=== PATIENT | female | born 1990 | race Two or more races ===

== ENCOUNTER 2018-12-15 04:37 | Inpatient (IN) | payer OTHER ==
[2018-12-15] MEDS ORDERED: Methylergonovine 0.2 MG/1 ML Amp IM PRN (10:53)
[2018-12-15] MEDS ORDERED: Carboprost Tromethamine 250 MCG/1 ML Amp IM PRN (10:53)
[2018-12-15] MEDS ORDERED: Sodium Chloride 0.9% 10 ML SDV IV PRN (10:53)
[2018-12-15] MEDS ORDERED: Lidocaine 1% 50 ML MDV INJECT PRN (10:53)
[2018-12-15] MEDS ORDERED: Sodium Chloride 0.9% 2.5 ML Syringe FLUSH PRN (10:53)
[2018-12-15] MEDS ORDERED: Nalbuphine 10 MG/1 ML Vial IVPUSH PRN (10:53)
[2018-12-15] MEDS ORDERED: Water For Irrigation,Sterile 1,000 ML Container IRR PRN (10:53)
[2018-12-15] MEDS ORDERED: Tranexamic Acid 1,000 MG in Sodium Chloride 0.9% 100 ML IV PRN (10:53)
[2018-12-15] MEDS ORDERED: Butorphanol 1 MG/ML SDV IVPUSH PRN (10:53)
[2018-12-15] MEDS ORDERED: Sodium Chloride 0.9% 10 ML Syringe FLUSH PRN (10:53)
[2018-12-15] MEDS ORDERED: Misoprostol 200 MCG Tab PO PRN (10:53)
[2018-12-15] MEDS ORDERED: Lactated Ringers 1,000 ML IV SCH (11:00)
[2018-12-15] MEDS ORDERED: Oxytocin/0.9 % Sodium Chloride 30 UNIT/500 ML BAG IV SCH (11:00)
--- NOTE | 2018-12-15 11:39 | PCM.PREANE ---
Preanesthetic Assessment - Anesthesia/Transfusion/Family Hx Anesthesia History: Prior Anesthesia Without Reaction Family History of Anesthesia Reaction: No - Review of Systems General: No Symptoms Pulmonary: No Symptoms Cardiovascular: No Symptoms Gastrointestinal: No Symptoms Neurological: No Symptoms Other: Reports: None - Physical Assessment Height: 1.7 m Weight: 73.028 kg ASA Class: 2E Mental Status: Alert & Oriented x3 Dentition: Reports: Normal Dentition ROM/Head Extension: Full Lungs: Clear to Auscultation, Normal Respiratory Effort Cardiovascular: Regular Rate, Regular Rhythm - Lab Values: Laboratory Last Values WBC 10.50 K/uL (4.0-11.0) 12/15/18 11:17 RBC 4.03 M/uL (4.30-5.90) L 12/15/18 11:17 Hgb 12.2 g/dL (12.0-16.0) 12/15/18 11:17 Hct 35.6 % (36.0-46.0) L 12/15/18 11:17 MCV 88.3 fL (80.0-98.0) 12/15/18 11:17 MCH 30.3 pg (27.0-32.0) 12/15/18 11:17 MCHC 34.3 g/dL (31.0-37.0) 12/15/18 11:17 RDW Std Deviation 43.8 fl (28.0-62.0) 12/15/18 11:17 RDW Coeff of Lanny 14 % (11.0-15.0) 12/15/18 11:17 Plt Count 175 K/uL (150-400) 12/15/18 11:17 MPV 10.00 fL (7.40-12.00) 12/15/18 11:17 Nucleated RBC % 0.0 /100WBC 12/15/18 11:17 Nucleated RBCs # 0 K/uL 12/15/18 11:17 - Allergies Allergies/Adverse Reactions: Allergies Allergy/AdvReac Type Severity Reaction Status Date / Time No Known Allergies Allergy Verified 12/15/18 05:22 - Acknowledgements Anesthesia Type Planned: Epidural Pt an Appropriate Candidate for the Planned Anesthesia: Yes Alternatives and Risks of Anesthesia Discussed w Pt/Guardian: Yes Pt/Guardian Understands and Agrees with Anesthesia Plan: Yes PreAnesthesia Questionnaire HEENT History: Reports: None Cardiovascular History: Reports: None Respiratory History: Reports: None Gastrointestinal History: Reports: None Genitourinary History: Reports: None 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 History: Reports: Fracture Neurological History: Reports: None Psychiatric History: Reports: None Endocrine/Metabolic History: Reports: None Hematologic History: Reports: None Immunologic History: Reports: None Oncologic (Cancer) History: Reports: None Dermatologic History: Reports: None - Infectious Disease History Infectious Disease History: Reports: None - Past Surgical History HEENT Surgical History: Reports: None Female Surgical History: Reports: Section Musculoskeletal Surgical History: Reports: None - CURRENT (IN HOUSE) MEDS Current Meds: Current Medications Butorphanol Tartrate (Stadol) 1 mg IVPUSH Q1H PRN PRN Reason: Pain Carboprost Tromethamine (Hemabate Ds) 250 mcg IM ASDIRECTED PRN PRN Reason: Post Hemorrhage Tranexamic Acid 1,000 mg/ (Sodium Chloride) 110 mls @ 660 mls/hr IV ONETIME PRN PRN Reason: Bleeding Lactated Ringer's (Ringers, Lactated) 1,000 mls @ 150 mls/hr IV ASDIRECTED DARIO Oxytocin/Sodium Chloride (Oxytocin 30 Unit/500 Ml-Ns) 30 unit in 500 mls @ 500 mls/hr IV TITRATE DARIO Lidocaine HCl (Xylocaine 1%) 50 ml INJECT ONETIME PRN PRN Reason: Laceration repair Methylergonovine Maleate (Methergine) 0.2 mg IM ASDIRECTED PRN PRN Reason: Post Hemorrhage Misoprostol (Cytotec) 200 mcg PO ONETIME PRN PRN Reason: Post Hemorrhage Nalbuphine HCl (Nubain) 10 mg IVPUSH Q1H PRN PRN Reason: Pain (severe 7-10) Sodium Chloride (Saline Flush) 10 ml FLUSH ASDIRECTED PRN PRN Reason: Keep Vein Open Sodium Chloride (Saline Flush) 2.5 ml FLUSH ASDIRECTED PRN PRN Reason: Keep Vein Open Sodium Chloride (Normal Saline) 10 ml IV ASDIRECTED PRN PRN Reason: IV Use Sterile Water (Sterile Water For Irrigation) 1,000 ml IRR ASDIRECTED PRN PRN Reason: delivery
[2018-12-15] MEDS ORDERED: Docusate Sodium 100 MG Cap PO PRN (23:06)
[2018-12-15] MEDS ORDERED: Witch Hazel Medicated Pads 40/Jar TOP PRN (23:06)
[2018-12-15] MEDS ORDERED: Ibuprofen 400 MG Tab PO PRN (23:06)
[2018-12-15] MEDS ORDERED: Bisacodyl 10 MG Supp RECTAL PRN (23:06)
[2018-12-15] MEDS ORDERED: Acetaminophen 500 MG Tab PO PRN ×2 (23:06)
[2018-12-15] MEDS ORDERED: Lanolin 100% Cream 7 GM Tube TOP PRN (23:06)
--- NOTE | 2018-12-16 03:17 | OR ---
SURGEON: Daniel Newton MD DATE OF PROCEDURE: 12/15/2018 INDICATION: A 27-year-old, -0-1-1, at 41 weeks 1 day, presenting in early labor was dilated 3cm. She had 1 prior low-transverse section for breech presentation. She had care in [place] this . However, she desired trial of labor after C- section, so she presented to [facility]. Discussed risks and benefits of repeat C- section versus trial of labor after section, she desired trial of labor. She continued to progress, and membrane was ruptured with clear fluid. She progressed to 10, 100, +2 station, had consistently category 1 tracing. PREOPERATIVE DIAGNOSES: 1. Menendez intrauterine at 41 weeks and 1 day. 2. Prior section x1. 3. Active second stage of labor. POSTOPERATIVE DIAGNOSES: 1. Menendez intrauterine at 41 weeks and 1 day. 2. Prior section x1. 3. Active second stage of labor. PROCEDURE: Normal spontaneous vaginal delivery. ANESTHESIA: Epidural anesthesia. ANESTHESIOLOGIST: Dr. Yaquelin Cox. Alex Guerrero CRNA ESTIMATED BLOOD LOSS: 300 mL. FINDINGS: Menendez intrauterine at 41 weeks and 1 day in cephalic presentation. Female fetus, score of 8 and 9. Weight of 8 pounds 10 ounces. DESCRIPTION OF PROCEDURE: The patient pushed with contractions for about 2 hours, had a consistently category 1 tracing with some early decelerations. head delivered over intact perineum in occiput anterior position, restituted ROT. No nuchal cord was noted. Anterior shoulder was delivered easily, followed by posterior shoulder and remaining body. was placed on maternal chest and assessed by awaiting nursery staff. Baby was pink and crying vigorously after delivery and moving all extremities. Umbilical cord was clamped and cut after 60 seconds and no longer pulsating. Cord gases were obtained. Placenta was delivered with gentle traction on the umbilical cord. It was examined to be intact with 3-vessel cord. The vagina and perineum was examined and noted a small right vaginal laceration that was bleeding. A [id number] was placed over the bleeding area with 3-0 Vicryl. Hemostasis was confirmed. Moderate bleeding was noted. Bimanual massage was performed with improvement in tone and decrease in bleeding. The patient tolerated the procedure well and was given care instructions. FAITH / ALEX /[id number] MTDD
[2018-12-16] MEDS: Benzocaine/Menthol 20%-0.5% Spray 78 GM Cannister TOP PRN ×2 (04:04→20:48)
[2018-12-16] MEDS: Ibuprofen 800 MG Tab PO PRN ×2 (04:05→20:45)
--- NOTE | 2018-12-16 08:04 | PCM48HPAN ---
Post Anesthesia Note - EVALUATION WITHIN 48HRS OF ANESTHETIC Vital Signs in Normal Range: Yes Patient Participated in Evaluation: Yes Respiratory Function Stable: Yes Airway Patent: Yes Cardiovascular Function Stable: Yes Hydration Status Stable: Yes Pain Control Satisfactory: Yes Nausea and Vomiting Control Satisfactory: Yes Mental Status Recovered: Yes Vital Signs: Last Vital Signs Temp 36.3 C 12/16/18 04:05 Pulse 89 12/16/18 04:05 Resp 17 12/16/18 04:05 BP 113/57 L 12/16/18 04:05 Pulse Ox 95 12/16/18 04:05
--- NOTE | 2018-12-16 09:49 | PCM.PNPP ---
- General Info Date of Service: 12/16/18 Functional Status: Reports: Pain Controlled, Tolerating Diet, Ambulating, Urinating, Other - Review of Systems General: Reports: No Symptoms HEENT: Reports: No Symptoms Pulmonary: Reports: No Symptoms Cardiovascular: Reports: No Symptoms Gastrointestinal: Reports: No Symptoms Genitourinary: Reports: No Symptoms Musculoskeletal: Reports: Other (Numbness right thigh) Skin: Reports: No Symptoms Neurological: Reports: No Symptoms Psychiatric: Reports: No Symptoms - Patient Data Vital Signs - Most Recent: Last Vital Signs Temp 36.3 C 12/16/18 07:53 Pulse 88 12/16/18 07:53 Resp 16 12/16/18 07:53 BP 104/65 12/16/18 07:53 Pulse Ox 96 12/16/18 07:53 Weight - Most Recent: 161 lb Lab Results - Last 24 Hours: Laboratory Results - last 24 hr 12/15/18 12/15/18 12/16/18 Range/Units 11:17 11:17 06:20 WBC 10.50 (4.0-11.0) K/uL RBC 4.03 L (4.30-5.90) M/uL Hgb 12.2 11.2 L (12.0-16.0) g/dL Hct 35.6 L 33.4 L (36.0-46.0) % MCV 88.3 (80.0-98.0) fL MCH 30.3 (27.0-32.0) pg MCHC 34.3 (31.0-37.0) g/dL RDW Std Deviation 43.8 (28.0-62.0) fl RDW Coeff of Lanny 14 (11.0-15.0) % Plt Count 175 (150-400) K/uL MPV 10.00 (7.40-12.00) fL Nucleated RBC % 0.0 /100WBC Nucleated RBCs # 0 K/uL Blood Type A POSITIVE Antibody Screen NEGATIVE Med Orders - Current: Current Medications Acetaminophen (Tylenol Extra Strength) 500 mg PO Q4H PRN PRN Reason: Pain Acetaminophen (Tylenol Extra Strength) 1,000 mg PO Q4H PRN PRN Reason: Pain Last Admin: 12/16/18 04:04 Dose: 1,000 mg Benzocaine/Menthol (Dermoplast Pain Relief 20%-0.5% [place]) 78 gm TOP ASDIRECTED PRN PRN Reason: Perineal Comfort Measure Last Admin: 12/16/18 04:04 Dose: 1 applic Bisacodyl (Dulcolax) 10 mg RECTAL ONETIME PRN PRN Reason: Constipation Butorphanol Tartrate (Stadol) 1 mg IVPUSH Q1H PRN PRN Reason: Pain Carboprost Tromethamine (Hemabate Ds) 250 mcg IM ASDIRECTED PRN PRN Reason: Post Hemorrhage Docusate Sodium (Colace) 100 mg PO BID PRN PRN Reason: Constipation Emollient Ointment (Lansinoh Hpa) 0 gm TOP ASDIRECTED PRN PRN Reason: Sore Nipples Tranexamic Acid 1,000 mg/ (Sodium Chloride) 110 mls @ 660 mls/hr IV ONETIME PRN PRN Reason: Bleeding Lactated Ringer's (Ringers, Lactated) 1,000 mls @ 150 mls/hr IV ASDIRECTED [facility] Last Admin: 12/15/18 13:55 Dose: 999 mls/hr Oxytocin/Sodium Chloride (Oxytocin 30 Unit/500 Ml-Ns) 30 unit in 500 mls @ 500 mls/hr IV TITRATE [facility] Last Admin: 12/15/18 22:40 Dose: 999 mls/hr Ibuprofen (Motrin) 400 mg PO Q4H PRN PRN Reason: Pain Ibuprofen (Motrin) 800 mg PO Q6H PRN PRN Reason: Pain Last Admin: 12/16/18 04:05 Dose: 800 mg Lidocaine HCl (Xylocaine 1%) 50 ml INJECT ONETIME PRN PRN Reason: Laceration repair Methylergonovine Maleate (Methergine) 0.2 mg IM ASDIRECTED PRN PRN Reason: Post Hemorrhage Misoprostol (Cytotec) 200 mcg PO ONETIME PRN PRN Reason: Post Hemorrhage Nalbuphine HCl (Nubain) 10 mg IVPUSH Q1H PRN PRN Reason: Pain (severe 7-10) Sodium Chloride (Saline Flush) 10 ml FLUSH ASDIRECTED PRN PRN Reason: Keep Vein Open Sodium Chloride (Saline Flush) 2.5 ml FLUSH ASDIRECTED PRN PRN Reason: Keep Vein Open Sodium Chloride (Normal Saline) 10 ml IV ASDIRECTED PRN PRN Reason: IV Use Sterile Water (Sterile Water For Irrigation) 1,000 ml IRR ASDIRECTED PRN PRN Reason: delivery Amaury Hannah (Tucks) 1 pad TOP ASDIRECTED PRN PRN Reason: comfort care Last Admin: 12/16/18 04:04 Dose: 1 pad Discontinued Medications Fentanyl/Bupivacaine HCl ([id number]-Ff 2 Mcg/Ml-0.125%) Confirm Administered Dose 100 mls @ as directed .ROUTE .STK-MED ONE Stop: 12/15/18 18:16 Last Admin: 12/16/18 07:45 Dose: Not Given - Infant Interaction Infant Disposition, : [place] at Bedside Infant Interaction: Holding Infant Infant Feeding: Breastfed ; Nursed Well Support Person: - Recovery Exam Fundal Tone: Firm Fundal Level: At Umbilicus Fundal Placement: Midline Lochia Amount: Scant Lochia Color: Rubra/Red Bladder Status: Voiding Urinary Elimination: Voided - Exam General: Alert, Oriented, No Acute Distress HEENT: Pupils Equal, Pupils Reactive Neck: Supple, Trachea Midline Lungs: Normal Respiratory Effort GI/Abdominal Exam: Soft, Non-Tender, No Distention Extremities: Normal Inspection, Normal Range of Motion, Non-Tender, No Pedal Edema Skin: Warm, Dry, Intact Wound/Incisions: Healing Well Neurological: No New Focal Deficit Psy/Mental Status: Normal Affect, Normal Mood - Problem List Review Problem List Initiated/Reviewed/Updated: No - My Orders Last 24 Hours: My Active Orders 12/15/18 10:53 Patient Status [ADT] Routine Notify Provider [RC] PRN Vital Signs [RC] PER UNIT ROUTINE Butorphanol [Stadol] 1 mg IVPUSH Q1H PRN Carboprost Tromethamine [Hemabate DS] 250 mcg IM ASDIRECTED PRN Lidocaine 1% [Xylocaine 1%] 50 ml INJECT ONETIME PRN Methylergonovine [Methergine] 0.2 mg IM ASDIRECTED PRN Nalbuphine [Nubain] 10 mg IVPUSH Q1H PRN Sodium Chloride 0.9% [Normal Saline] 10 ml IV ASDIRECTED PRN Sodium Chloride 0.9% [Saline Flush] 10 ml FLUSH ASDIRECTED PRN Sodium Chloride 0.9% [Saline Flush] 2.5 ml FLUSH ASDIRECTED PRN Tranexamic Acid [Cyklokapron] 1,000 mg Sodium Chloride 0.9% [Normal Saline] 100 ml IV ONETIME Water For Irrigation,Sterile [Sterile Water for Irrigation] 1,000 ml IRR ASDIRECTED PRN miSOPROStol [Cytotec] 200 mcg PO ONETIME PRN Scalp Electrode [WOMSER] Per Unit Routine Peripheral IV Insertion Adult [OM.PC] Routine 12/15/18 11:00 Lactated Ringers [Ringers, Lactated] 1,000 ml IV ASDIRECTED Oxytocin/0.9 % Sodium Chloride [Oxytocin 30 Unit/500 ML-NS] 30 unit in 500 ml IV TITRATE 12/15/18 23:06 Acetaminophen [Tylenol Extra Strength] 1,000 mg PO Q4H PRN Acetaminophen [Tylenol Extra Strength] 500 mg PO Q4H PRN Benzocaine/Menthol [Dermoplast Pain Relief 20%-0.5% [place]] 78 gm TOP ASDIRECTED PRN Bisacodyl [Dulcolax] 10 mg RECTAL ONETIME PRN Docusate Sodium [Colace] 100 mg PO BID PRN Ibuprofen [Motrin] 400 mg PO Q4H PRN Ibuprofen [Motrin] 800 mg PO Q6H PRN Lanolin [Lansinoh HPA] See Dose Instructions TOP ASDIRECTED PRN Witch Brielle [Tucks] 1 pad TOP ASDIRECTED PRN Breast Pump [WOMSER] Per Unit Routine 12/15/18 23:07 Patient Status [ADT] Routine May Shower [RC] ASDIRECTED Up ad Samantha [RC] ASDIRECTED Vital Signs [RC] PER UNIT ROUTINE Assess Lochia [WOMSER] Per Unit Routine Assess Uterine Involution [WOMSER] Per Unit Routine Peripheral IV Discontinue [OM.PC] Routine 12/15/18 23:10 Ice Therapy [OM.PC] Per Unit Routine Perineal Care [OM.PC] Per Unit Routine Sitz Bath [OM.PC] Per Unit Routine 12/16/18 09:40 Ready for Discharge [RC] PER UNIT ROUTINE - Assessment Assessment:: 27yo PPD1 s/p , stable and recovering well. - Plan Plan:: - VSS, no signs of infection - Hgb stable 11.2 , bleeding light, no s/s of anemia - well - stable for discharge home today
== END 2018-12-16 11:50 | disposition home or self-care (01) | DRG 807 ==
LOC: MW.OBCHECK 04:37 → MW.OB 04:38 → MW.OBCHECK 16:37 → MW.OB 23:05 → OBSVTOIN 23:05 → MW.OB 12-16 01:47
PROVIDERS: ADMIT Obstetrics & Gynecology; ATTEND Obstetrics & Gynecology
PROC: 10E0XZZ Delivery of Products of Conception, External Approach (ICD-10-PCS; principal; 2018-12-15)
PROC: 4A1HXCZ Monitoring of Products of Conception, Cardiac Rate, External Approach (ICD-10-PCS; 2018-12-15)
PROC: 10907ZC Drainage of Amniotic Fluid, Therapeutic from Products of Conception, Via Natural or Artificial Opening (ICD-10-PCS; 2018-12-15)
DX: O48.0 Post-term pregnancy (principal); Z37.0 Single live birth; Z3A.41 41 weeks gestation of pregnancy
CPT/HCPCS: 36415; 51702; 59025; 59409; 85014; 85018; 85027; 86850; 86900; 86901; A9270-GY; J2590; J7120

== ENCOUNTER 2021-07-16 20:42 | Emergency (ER) | payer OTHER | END 2021-07-16 22:29 | disposition home or self-care (01) | LOC: MW.ED 20:42 | DX: H57.12 Ocular pain, left eye (principal); Z77.098 Contact with and (suspected) exposure to other hazardous, chiefly nonmedicinal, chemicals | CPT/HCPCS: 99282; 99283 ==